=== PATIENT | male | born 1960 | race Caucasian/White ===

== ENCOUNTER 2017-10-26 14:08 | Emergency (ER) | payer SELFPAY ==
[2017-10-26] MEDS ORDERED: Adacel (T-DAP) 0.5 ML VIAL ONE (14:21)
[2017-10-26 14:35] LABS: #Eosinphils 0.3 thou/uL (0.0-0.7); #Lymphocytes 1.9 thou/uL (1.20-3.40); #Monocytes 0.7 thou/uL (0.11-0.59); %Basophils 0.8 % (0.0-1.0); %Eosinophils 4.3 % (0.0-10.0); %Lymphocytes 32.4 % (21.0-51.0); %Monocytes 11.2 % (0.0-10.0); %Neutrophils 51.3 % (42.0-75.0); Mean Corpuscular HGB CONC 35.5 g/dL (32.0-36.0); Mean Corpuscular Hemoglobin 33.1 pg (27.0-31.0); Mean Corpuscular Volume 93.2 fl (80.0-94.0); Mean Platelet Volume 7.5 fL (7.4-10.4); Platelet Count 178 thou/uL (130-400); RBC Distribution Width 12.1 % (11.5-14.5); Red Blood Cell (RBC) Count 4.52 mill/uL (4.70-6.10); White Blood Cell (WBC) Count 5.9 thou/uL (4.8-10.8)
[2017-10-26 14:38] LABS: MDiff Complete? YES
[2017-10-26 15:22] LABS: AST (SGOT) 38 U/L (5-34); Albumin 4.2 g/dL (3.5-5.0); Alcohol 221 mg/dL (Less than 10); Anion Gap 14 mmol/L (10-20); Calc. Creatinine Clearance 0 mL/min (70-130); Calcium 8.6 mg/dL (7.8-10.44); Carbon Dioxide 21 mmol/L (22-29); Chloride 105 mmol/L (98-107); Estimated GFR-MDRD Greater than 90; Glucose 109 mg/dL (70-105); Potassium 4.2 mmol/L (3.5-5.1); Protein, Total 6.9 g/dL (6.0-8.3); Sodium 136 mmol/L (136-145)
[2017-10-26] MEDS ORDERED: CEFAZOLIN 1 GM VIAL ONE (15:32)
[2017-10-26] MEDS ORDERED: Water For Injection,Sterile 20 ML ONE (15:32)
--- NOTE | 2017-10-26 20:57 | RAD ---
RIGHT THUMB TWO VIEWS 10/26/17 Laceration is present through the distal end of the thumb along with avulsion of the terminal tuft of the distal phalanx. Degenerative changes are prominent in the IP joint of the thumb and there is sug gestion of old trauma here. IMPRESSION: 1. Open fracture of the terminal tuft of the distal phalanx with distraction of fragments. This is a cute. 2.Degenerative changes at the IP joint of the thumb with what appears to be old trauma. POS: HOME
== END 2017-10-26 16:10 | disposition short-term general hospital (02) ==
LOC: BURERS 14:08
DX: S62.521B Displaced fracture of distal phalanx of right thumb, initial encounter for open fracture (principal); F10.129 Alcohol abuse with intoxication, unspecified; F17.210 Nicotine dependence, cigarettes, uncomplicated; Z23 Encounter for immunization; W23.0XXA Caught, crushed, jammed, or pinched between moving objects, initial encounter
CPT/HCPCS: 80051; 80307; 82040; 82310; 82565; 82947; 84155; 84450; 85025; 90471; 90715; 96374; J0690

== ENCOUNTER 2024-01-31 19:43 | Emergency (ER) | payer MEDICAID, SELFPAY ==
[2024-01-31] MEDS ORDERED: cefTRIAXone (ROCEPHIN) 2 GM VIAL ONE (20:35)
[2024-01-31] MEDS ORDERED: Sodium Chloride 0.9% 100 ML ONE (20:35)
[2024-01-31 20:41] LABS: #Basophils 0.1 thou/uL (0.0-0.2); #Eosinphils 0.2 thou/uL (0.0-0.7); #Lymphocytes 1.4 thou/uL (1.20-3.40); #Monocytes 0.6 thou/uL (0.11-0.59); #Neutrophils 5.3 thou/uL (1.40-6.50); %Basophils 1.3 % (0.0-1.0); %Eosinophils 2.7 % (0.0-10.0); %Lymphocytes 18.7 % (21.0-51.0); %Monocytes 8.3 % (0.0-10.0); Hematocrit 32.3 % (42.0-52.0); Hemoglobin 10.6 g/dL (14.0-18.0); Mean Corpuscular HGB CONC 32.9 g/dL (32.0-36.0); Mean Corpuscular Hemoglobin 28.4 pg (27.0-31.0); Mean Corpuscular Volume 86.2 fl (78.0-98.0); Mean Platelet Volume 6.2 fL (7.4-10.4); Platelet Count 288 10x3/uL (130-400); Red Blood Cell (RBC) Count 3.75 mill/uL (4.70-6.10); White Blood Cell (WBC) Count 7.6 10x3/uL (4.8-10.8)
[2024-01-31 21:18] LABS: ALT (SGPT) 8 U/L (8-55); AST (SGOT) 35 U/L (5-34); Albumin 2.7 g/dL (3.4-4.8); Alkaline Phosphatase 85 U/L (40-110); Anion Gap 13 mmol/L (10-20); BUN (Urea Nitrogen) 5 mg/dL (8.4-25.7); Bilirubin, Total 0.5 mg/dL (0.2-1.2); Calc. Creatinine Clearance 0 mL/min (70-130); Calcium 8.2 mg/dL (7.8-10.44); Carbon Dioxide 23 mmol/L (23-31); Chloride 103 mmol/L (98-107); Estimated GFR 98; Globulin 3.5 g/dL (2.4-3.5); Glucose 96 mg/dL (80-115); Potassium 4.3 mmol/L (3.5-5.1); Protein, Total 6.2 g/dL (5.8-8.1); Sodium 135 mmol/L (136-145)
== END 2024-01-31 22:26 | disposition home or self-care (01) ==
LOC: BURERS 19:43
DX: N39.0 Urinary tract infection, site not specified (principal); N32.89 Other specified disorders of bladder; F17.210 Nicotine dependence, cigarettes, uncomplicated
CPT/HCPCS: 74176; 80053; 85025; 96365; J0696; J3490

== ENCOUNTER 2024-02-05 17:18 | Emergency (ER) | payer MEDICAID ==
[2024-02-05 18:33] LABS: Bilirubin Small (Negative); Blood, Urine Negative (Negative); Clarity Clear (Clear); Glucose, Urine (Dipstick) 100 mg/dL (Negative); Ketone, Urine Trace mg/dL (Negative); Leukocyte Negative (Negative); Nitrite Positive (Negative); Protein, Urine (Dipstick) 30 mg/dL (Neg-Trace); pH, Urine 5.5 (5.0-9.0)
[2024-02-05 18:34] LABS: Specific Gravity, Urine 1.017 (1.002-1.036)
[2024-02-05 18:38] LABS: Bacteria/HPF 2+ HPF (None Seen); CAUTI Indications for Culture Dysuria,urgency,freq; RBC/HPF None Seen HPF (0-3)
[2024-02-05 18:39] LABS: Mucous/LPF 3+ LPF (<2+)
[2024-02-05 18:40] LABS: Squamous Epithelial 0-3 HPF (0-3)
[2024-02-05 18:41] LABS: Urine Culture Reflex No No
== END 2024-02-05 19:38 | disposition home or self-care (01) ==
LOC: BURERS 17:18
DX: N39.0 Urinary tract infection, site not specified (principal); R33.9 Retention of urine, unspecified; F17.210 Nicotine dependence, cigarettes, uncomplicated
CPT/HCPCS: 81001; 99283